=== PATIENT | female | born 2005 | race Caucasian/White ===

== ENCOUNTER 2024-01-18 08:45 | Emergency (ER) | payer MEDICAID, OTHER ==
[~2024-01-18] VITALS: Ht 162.6 cm; Wt 117.0 kg
[2024-01-18] MEDS ORDERED: RITA30CA (08:53)
[2024-01-18] MEDS ORDERED: NIRM1TAB14 PO (11:34)
[2024-01-18 11:47] VITALS: BP 134/85; TEMP 98.1; O2SAT 98
== END 2024-01-18 11:49 | disposition home or self-care (01) ==
LOC: M ED 08:45
DX: U07.1 COVID-19 (principal); B34.9 Viral infection, unspecified; F90.9 Attention-deficit hyperactivity disorder, unspecified type; Z88.1 Allergy status to other antibiotic agents; Z79.899 Other long term (current) drug therapy